=== PATIENT | male | born 1955 | race Caucasian/White ===

== ENCOUNTER 2020-03-24 00:12 | Outpatient (CLI) | payer OTHER, SELFPAY ==
[2020-03-24 18:10] LABS: SARS-CoV-2 RNA PCR Negative
== END 2020-03-24 00:13 | disposition home or self-care (01) ==
LOC: ANHCOVIDDT 00:12
PROVIDERS: Visit Provider Podiatrist Foot & Ankle Surgery
DX: Z20.828 Contact with and (suspected) exposure to other viral communicable diseases (principal); Z01.812 Encounter for preprocedural laboratory examination
CPT/HCPCS: 87635; C9803; U0003

== ENCOUNTER 2020-03-26 03:03 | Day surgery (SDC) | payer OTHER, SELFPAY ==
[2020-03-22 13:09] VITALS: BMI 30.7
[2020-03-26] VITALS (8 sets, daily range): BP systolic 101–133; BP diastolic 61–86; PULSE 83–94; RESP 10–18; TEMP 36.3–36.6; O2SAT 97–100
--- NOTE | ~2020-03-26 | XR_ITS ---
EXAMINATION: XR surgery orthopedic DATE: 03/26/2020 13:16 INDICATION: Foot instrumentation removal TECHNIQUE: 2 fluoroscopic spot images of the left foot were obtained during procedure performed by Dr Ines Iverson. Radiologist was not present for the imaging or procedure. The amount of fluoroscopy time used during this procedure was 0.1 minutes. COMPARISON: None. FINDINGS: Assessment of the hindfoot is limited by quantum mottle on the lateral fluoroscopic image. No evident retained instrumentation in the visualized left mid or hindfoot. Lucent likely screw tracks in the m edial cuneiform and at the proximal first metatarsal with likely arthrodesis across the first tarsal metatarsal joint. 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 No fractures identified. IMPRESSION: 1. Likely first tarsal metatarsal arthrodesis with residual screw tracts but no evident retained fore ign bodies post reported instrumentation removal. See procedure note for further detail. Reviewed, dictated and finalized at location A. IMPRESSION: 1. Likely first tarsal metatarsal arthrodesis with residual screw tracts but no evident retained foreign bodies post reported instrumentation removal. See pro cedure note for further detail.
--- NOTE | 2020-03-26 07:15 | WPDHPUPDATE1 ---
History and Physical Update Update Date/Time: 03/26/20 07:15 History and Physical has been reviewed, including an updated exam of the patient. There are NO changes in the patient's condition. Risks, benefits, and alternatives have been discussed and questions answered. Patient agrees to proceed with procedure.
--- NOTE | 2020-03-26 07:16 | P.HP_ITS ---
H&P: HPI History of Present Illness Chief complaint: painful deep orthopedic hardware left foot Narrative: Asad Noble is a 64 year old male he is scheduled for removal of painful hardware left foot. He doesn't tolerate hardware, he had talotarsal stabilization of the left foot along with a left midfoot arthrodesis. He has waited the 6 months that are recommended prior to elected removal of subtalar implant. PENDING SALE TO [facility] Social History Social History Gender identity (if verbalized by the patient): Male Meds Home Medications and Allergies Home Medications Medication Instructions Recorded Confirmed Type aripiprazole 5 mg PO DAILY 03/22/20 03/22/20 History esomeprazole magnesium [Nexium] 40 mg PO DAILY 03/22/20 03/22/20 History metformin 1,000 mg PO BID 03/22/20 03/22/20 History misoprostol 200 mcg PO QAM AND QHS 03/22/20 03/22/20 History simvastatin 20 mg PO DAILY 03/22/20 03/22/20 History tamsulosin 0.4 mg PO DAILY 03/22/20 03/22/20 History venlafaxine 150 mg PO DAILY 03/22/20 03/22/20 History Allergies Allergy/AdvReac Type Severity Reaction Status Date / Time No Known Allergies Allergy Verified 03/22/20 12:58 Exam Extrem: Other: Cicatrix along lateral left sinus tarsi and dorsum of first metatarsal cuneiform joint. Assessment and Plan Additional Plan Diagnosis: Painful deep orthopedic hardware left foot Consented for removal of painful orthopedic hardware left foot
[2020-03-26] MEDS: LACTATED RINGERS 1,000 ML 30 ML IV CONT ×2 (09:50→13:05)
[2020-03-26 09:57] LABS: Glucose Point of Care 111 (65-105)
--- NOTE | 2020-03-26 10:30 | P.PNAN_ITS ---
Anes - Initial Pre Proc Eval Procedure: Operation Date: 03/26/20 11:30 Proposed Procedures p Removal Of Painful Deep Orthopedic Hardware Left Foot - Carl Iverson JR, MD Date/Time: 03/26/20 10:30 Surgeon: Carl Iverson JR, MD Pre Op Diagnosis: painful deep orthopedic hardware left foot Patient Data Age: 64 Gender: M Height: 1.8 m Weight: 99.79 kg Allergies Allergy/AdvReac Type Severity Reaction Status Date / Time No Known Allergies Allergy Verified 03/22/20 12:58 Home Medications Medication Instructions Recorded Confirmed Type aripiprazole 5 mg PO DAILY 03/22/20 03/22/20 History esomeprazole magnesium [Nexium] 40 mg PO DAILY 03/22/20 03/22/20 History metformin 1,000 mg PO BID 03/22/20 03/22/20 History misoprostol 200 mcg PO QAM AND QHS 03/22/20 03/22/20 History simvastatin 20 mg PO DAILY 03/22/20 03/22/20 History tamsulosin 0.4 mg PO DAILY 03/22/20 03/22/20 History venlafaxine 150 mg PO DAILY 03/22/20 03/22/20 History Laboratory Tests 03/26/20 09:47 POC Capillary Glucose 111 mg/dl H mg/dl (65-105) Patient hx anesthesia problems: none Family hx anesthesia problems: none [facility] Past Medical History Medical History (Updated 03/26/20 @ 07:25 by Burke Rodriguez DO) Depression Diabetes type 2, controlled GERD (gastroesophageal reflux disease) History of gastric ulcer Hyperlipidemia ANDREA (obstructive sleep apnea) Surgical History Surgical History (Updated 03/26/20 @ 07:25 by Burke Rodriguez DO) History of bilateral knee replacement History of gastric bypass Social History Social History Gender identity (if verbalized by the patient): Male Anes - Eval Final PreProcedure Day of Procedure 03/26/20 10:30 Patient weight: obese Heart: regular rate and rhythm Lungs: clear to auscultation and normal air movement Airway: Mallampati scale class II Neurological: alert and oriented Last oral intake: >/= 8 hours ASA classification: III Emergent: no Anesthetic plan: proceed Anesthesia type and monitoring: general LMA and standard monitoring Informed Consent: The patient's anesthetic plan and its attendant risks and benefits were discussed with the patient/family/POA. Questions were solicited and answers provided to the satisfaction of the patient/family/POA.
[2020-03-26] MEDS: ceFAZolin 2 GM/D5W 50 ML 2 GM/50 ML BAG IVPB (11:54)
[2020-03-26] MEDS: LIDOCAINE HCL 2% LOCAL INJ 20 ML VIAL 10 ML INFILTRATE (12:32)
--- NOTE | 2020-03-26 13:14 | PM.OP ---
Procedure Note - Brief Procedure Note - Brief Date of procedure: 03/26/20 Pre-op diagnosis: painful deep orthopedic hardware left foot Post-op diagnosis: same Procedure performed: Removal of deep orthopedic hardware left foot Anesthesia: GLMA Surgeon: Carl Iverson JR, DPM Estimated blood loss (mL): 1 Complications: No immediate complications Condition: stable Disposition: same day
[2020-03-26] MEDS: ONDANSETRON INJ 4 MG/2 ML VIAL IV PUSH (13:27)
--- NOTE | 2020-03-26 19:08 | OP_ITS ---
DATE OF PROCEDURE: 03/26/2020 PREOPERATIVE DIAGNOSES: 1. Painful deep hardware over the dorsum of the first metatarsocuneiform joint, left foot. 2. Painful deep orthopedic hardware along the lateral sinus tarsi, left foot. POSTOPERATIVE DIAGNOSES: 1. Painful deep hardware over the dorsum of the first metatarsocuneiform joint, left foot. 2. Painful deep orthopedic hardware along the lateral sinus tarsi, left foot. PROCEDURE: 1. Removal of painful deep hardware from the dorsum of the first metatarsocuneiform joint of the left foot. 2. Removal of painful deep orthopedic hardware, sinus tarsi, left foot. PATHOLOGY: None. ANESTHESIA: General with local. HEMOSTASIS: Pneumatic ankle tourniquet at 250 mmHg. ESTIMATED BLOOD LOSS: Minimal. MATERIALS: 3-0 Vicryl, 4-0 Vicryl and 4-0 Monocryl. INJECTABLES: 20 cc of a 1:1 mixture of 2% lidocaine plain and 0.5% Marcaine plain injected postoperatively. COMPLICATIONS: None. PROCEDURE IN DETAIL: Under mild sedation, the patient was brought to the operating room and placed on the operating table in the supine position. Pneumatic ankle tourniquet was placed about the patient's left ankle. Following general anesthesia, the foot was then scrubbed, prepped, and draped in the usual aseptic manner. An Esmarch bandage was then used to examine the patient's left foot and the pneumatic ankle tourniquet was inflated. Surgery began in the following manner. Attention was directed to the dorsum of the first metatarsocuneiform joint of the left foot, where there was an old healed cicatrix. An incision was made overlying the dorsum of the first metatarsocuneiform joint extending down to the periosteum and capsular structures over the first metatarsocuneiform joint dorsal and medially. The incision was continued deep exposing the plate overlying the fused joint. A [place] periosteal elevator was used to free the proximal and distal most aspect of the plate. Next, utilizing the Vizury screwdriver, the plate and screws were removed in total and placed on the back table. Fluoroscopic imaging was used to make sure that there was no remnants of the plate and screw construct over the first metatarsocuneiform joint. Fluoroscopy was also used to make sure that there was no sign of nonunion across the first metatarsocuneiform joint, this was not noted intraoperatively. The first metatarsocuneiform joint arthrodesis site was also noted to be solid. The wound site was flushed with copious amounts of sterile saline. Next, the periosteum and capsular structures were reapproximated and coapted utilizing 3-0 Vicryl in simple interrupted suture fashion technique. Next, the subcutaneous structures were reapproximated and coapted utilizing 4-0 Vicryl in simple interrupted suture technique. Following the skin was reapproximated and coapted utilizing 4-0 Monocryl in running subcuticular suture fashion technique. Attention was then directed to the lateral aspect of the sinus tarsi, where a small 2 cm incision was made overlying the sinus tarsi laterally. The incision was continued deep down through subcutaneous tissues using sharp and blunt dissection. All bleeders were ligated and cauterized as necessary. At this point, 2 cm retractors were used to retract the sinus tarsi contents. At this point, the sinus tarsi implant was visualized deep within the sinus tarsi canal. Utilizing a Adriana, the implant was removed in toto. The wound site was flushed with copious amounts of sterile saline. There was no remnants of the implant nor was there any synovitis tissue present. Next, the capsular structures were reapproximated and coapted utilizing 4-0 Vicryl in simple interrupted suture technique. Next, the subcutaneous structures were reapproximated and
== END 2020-03-26 14:50 | disposition home or self-care (01) ==
PROVIDERS: PCP Hospitalist; Visit Provider Podiatrist Foot & Ankle Surgery
PROC: (CPT 20680; principal; 2020-03-26 11:30)
DX: T84.84XA Pain due to internal orthopedic prosthetic devices, implants and grafts, initial encounter (principal); M79.672 Pain in left foot; Y83.8 Other surgical procedures as the cause of abnormal reaction of the patient, or of later complication, without mention of misadventure at the time of the procedure; E11.9 Type 2 diabetes mellitus without complications; E78.5 Hyperlipidemia, unspecified; G47.33 Obstructive sleep apnea (adult) (pediatric); K21.9 Gastro-esophageal reflux disease without esophagitis; F32.9 Major depressive disorder, single episode, unspecified; Z87.11 Personal history of peptic ulcer disease; Z79.84 Long term (current) use of oral hypoglycemic drugs; Z98.84 Bariatric surgery status; E66.9 Obesity, unspecified; Z68.29 Body mass index [BMI] 29.0-29.9, adult
CPT/HCPCS: 20680 ×2; A9270; J0690; J1100; J2250; J2405; J2704; J3010; J7120